=== PATIENT | female | born 1960 | race Caucasian/White ===

== ENCOUNTER → 2017-06-10 | Outpatient (CLI) | payer MEDICARE, BC, OTHER ==
--- NOTE | 2017-06-10 16:16 | REPMRS ---
Patient History The patient states she had a clinical breast exam in 05/2017. Patient is postmenopausal. Family history of breast cancer in paternal grandmother at age 50 or over. Digital Woman Screen Mammo: June 10, 2017 - Exam #: [id number] Bilateral CC and MLO view(s) were taken. Technologist: Mary Smiley Technologist Prior study comparison: May 13, 2016, digital woman screen mammo performed at [facility]. April 03, 2015, digital woman screen mammo performed at [facility]. February 27, 2014, digital woman screen mammo performed at [facility]. FINDINGS: There are scattered fibroglandular densities. An Xilici-W-Ylvi reservoir overlies the right superomedial breast. There has been no change in the appearance of the mammogram from the prior studies. There is a mild amount of scattered fibroglandular density which is fairly symmetric. There is no interval development of dominant mass, architectural distortion, or clustered microcalcification suggestive of malignancy. ASSESSMENT: BI-RADS/ACR category 2 mammogram. Benign finding(s). Recommendation Routine screening mammogram in 1 year (for women over age 40). This mammogram was interpreted with the aid of an FDA-approved computer-aided dectection system. Electronically Signed By: Savage Shaffer MD 06/10/17 2710
== END ==
LOC: M WHC 14:59
PROVIDERS: ATTEND Nurse Practitioner Family
DX: Z01.419 Encounter for gynecological examination (general) (routine) without abnormal findings (principal); Z12.31 Encounter for screening mammogram for malignant neoplasm of breast; Z78.0 Asymptomatic menopausal state; Z80.3 Family history of malignant neoplasm of breast; N81.11 Cystocele, midline
CPT/HCPCS: G0101; G0202

== ENCOUNTER → 2018-08-11 | Outpatient (CLI) | payer MEDICARE, BC, OTHER | LOC: M WHC 12:57 | DX: Z51.81 Encounter for therapeutic drug level monitoring (principal); Z79.899 Other long term (current) drug therapy; M81.0 Age-related osteoporosis without current pathological fracture; Z12.31 Encounter for screening mammogram for malignant neoplasm of breast; Z12.12 Encounter for screening for malignant neoplasm of rectum | CPT/HCPCS: 77067; 77080 ==

== ENCOUNTER → 2018-08-11 | Outpatient (CLI) | payer OTHER | LOC: M WHC 13:01 | DX: Z12.31 Encounter for screening mammogram for malignant neoplasm of breast (principal) | CPT/HCPCS: 77067 ==

== ENCOUNTER → 2019-08-19 | Outpatient (CLI) | payer MEDICARE, BC ==
--- NOTE | 2019-08-19 15:36 | REP ---
BILATERAL SCREENING DIGITAL MAMMOGRAM WITH 3D TOMOSYNTHESIS: There are no palpable abnormalities or other breast complaints. The the patient states she had a clinical breast examination August,. The the patient states she performs self-breast examinations 12 times per year. The Tyrer-Cuzick Score is: 8.0% . Comparison is 04/03/2015. There are scattered areas of fibroglandular density. There is no dominant mass, micro calcific cluster or architectural distortion that would indicate malignancy. There are no additional findings on 3D tomosynthesiss. There is no change from the prior study. Impression: BIRADS/ACR category 1 mammogram. Negative. Recommendation: Routine annual screening mammography. This mammogram was interpreted with the aid of a FDA approved computer-aided detection system. A. Negative mammogram reports should not delay biopsy if a dominant or clinically suspicious mass is present. B. Not all breast cancers are identified by mammography or tomosynthesis. C. Adenosis and dense breasts may obscure an underlying neoplasm. Patient letter M1. Electronically Signed by Russel Gunderson MD 08/19/2019 03:27 P
== END ==
LOC: M WHC 13:24
PROVIDERS: ATTEND Nurse Practitioner Family
DX: Z01.419 Encounter for gynecological examination (general) (routine) without abnormal findings (principal); Z12.31 Encounter for screening mammogram for malignant neoplasm of breast
CPT/HCPCS: 77063; 77067; G0101

== ENCOUNTER → 2020-11-22 | Outpatient (CLI) | payer MEDICARE, OTHER ==
--- NOTE | 2020-11-22 12:32 | REPMRS ---
Patient History The patient states she had a clinical breast exam in November 2020. Family history of breast cancer at age 50 or over in paternal grandmother. No Hormone Replacement Therapy Digital Woman Screen Mammo: November 22, 2020 - Exam #: [id number] Bilateral CC and MLO view(s) were taken. Technologist: Amber Boswell Technologist Prior study comparison: August 19, 2019, bilateral digital woman screen mammo performed at [facility]. August 11, 2018, bilateral digital woman screen mammo performed at [facility]. June 10, 2017, digital woman screen mammo performed at [facility]. FINDINGS: There are scattered fibroglandular densities. The Volpara volumetric breast density category is:B. There are fine calcifications on the scan of the lateral aspect of the right breast consistent with deodorant or powder residue. These are clearly seen to be on the skin on tomography. An Mjgpdz-N-Kkrh catheter overlies the right axilla. There has been no change in the appearance of the mammogram from the prior studies. There is a mild amount of scattered fibroglandular density which is fairly symmetric. There is no interval development of dominant mass, architectural distortion, or grouped microcalcification suggestive of malignancy. 3-D tomosynthesis shows no additional findings. Assessment: BI-RADS/ACR category 2 mammogram. Benign Findings. Recommendation Routine screening mammogram of both breasts in 1 year (for women over age 40). This patient's [facility] Lifetime Breast Cancer Risk is estimated at 7.7 %. This mammogram was interpreted with the aid of an FDA-approved computer-aided dectection system. Electronically Signed By: Savage Shaffer MD 11/22/20 [id number]
== END ==
LOC: M WHC 11:06
PROVIDERS: ATTEND Nurse Practitioner Family
DX: Z12.31 Encounter for screening mammogram for malignant neoplasm of breast (principal)
CPT/HCPCS: 77063; 77067; G0101

== ENCOUNTER 2023-09-27 08:38 | Observation (INO) | payer OTHER, BC ==
[~2023-09-27] VITALS: Ht 152.4 cm; Wt 81.4 kg
[2023-09-27] MEDS ORDERED: LEVO100T5 PO (08:55)
[2023-09-27] MEDS ORDERED: POTA10CA60 PO ×2 (08:55→11:43)
[2023-09-27] MEDS ORDERED: NS 1,000 ML IV SCH (09:40)
[2023-09-27 09:50] LABS: HEMOGLOBIN 12.8 g/dl (12.0-15.5); MEAN CORPUSCULAR HEMOGLOBIN 33.2 pg (27.0-33.0); MEAN CORPUSCULAR HGB CONC 33.7 g/dl (32.0-36.5); MEAN CORPUSCULAR VOLUME 98.7 fl (80.0-96.0); PLATELET COUNT, AUTOMATED 241 10^3/uL (150-450); RED BLOOD COUNT 3.85 10^6/uL (4.00-5.40); WHITE BLOOD COUNT 7.7 10^3/uL (4.0-10.0)
[2023-09-27 10:01] LABS: BLOOD UREA NITROGEN 6 MG/DL (9-23); CALCIUM LEVEL 7.8 MG/DL (8.3-10.6); CARBON DIOXIDE LEVEL 23 MMOL/L (20-31); CHLORIDE LEVEL 109 MMOL/L (98-107); CREATININE FOR GFR 0.33 MG/DL (0.55-1.30); GLOMERULAR FILTRATION RATE > 60.0 (>45); GLUCOSE, FASTING 94 MG/DL (74-106); POTASSIUM SERUM 3.6 MMOL/L (3.5-5.1); SODIUM LEVEL 145 MMOL/L (136-145)
[2023-09-27] MEDS ORDERED: MOM 30ML SUSPENSION UDC PO PRN (10:55)
[2023-09-27] MEDS ORDERED: MAALOX 30 ML SUSP *UDC PO PRN (10:55)
[2023-09-27] MEDS ORDERED: ACETAMINOPHEN TAB 650MG DOSE (2X325MG) PO PRN (10:55)
[2023-09-27] MEDS ORDERED: LORazepam 2 MG TAB PO PRN (10:55)
[2023-09-27 11:06] LABS: ETHYL ALCOHOL (ETHANOL) 0.058 % (0.000-0.010)
[2023-09-27] MEDS ORDERED: MORPHINE 2 MG/ML 1ML VIAL IV PRN (11:15)
[2023-09-27] MEDS ORDERED: MED REC IN PROGRESS XX SCH (11:20)
[2023-09-27] MEDS: hydrALAZINE 20MG/ML 1ML VIAL IV SCH ×3 (11:30→23:32)
[2023-09-27 11:36] LABS: PROCALCITONIN <0.04 ng/ml
[2023-09-27] MEDS ORDERED: NYST1POW9 (11:43)
[2023-09-27 11:49] LABS: HEMOGLOBIN A1c 4.8 % (4.0-6.0)
[2023-09-27] MEDS ORDERED: HOME MED LIST COMPLETE! XX SCH (11:50)
[2023-09-27] MEDS ORDERED: HYDROMORPHONE HCL 0.5 MG/ 0.5 ML SYRINGE IV PRN ×4 (13:50→15:10)
[2023-09-27] MEDS ORDERED: hydrALAZINE 20MG/ML 1ML VIAL IV STA (15:01)
[2023-09-27] MEDS ORDERED: ceFAZolin 2 GM/D5W 50 ML IV BAG As Ordered ONE (18:44)
[2023-09-27] MEDS ORDERED: oxyCODONE 5MG TAB PO PRN (20:10)
[2023-09-27] MEDS ORDERED: HYDROmorphone HCL 2MG/ML 1ML VIAL As Ordered ONE (20:19)
[2023-09-27] MEDS: HYDROMORPHONE HCL 0.5 MG/ 0.5 ML SYRINGE IV PRN ×4 (20:25→20:40)
[2023-09-27] MEDS: fentaNYL 100 MCG/2 ML INJECTION IV PRN ×4 (20:44→20:59)
[2023-09-27 21:40] VITALS: BP 170/92; TEMP 98.3; O2SAT 95
[2023-09-27 22:00] VITALS: O2SAT 96
[2023-09-27 22:10] VITALS: BP 155/70; TEMP 98.5; O2SAT 94
[2023-09-27 22:33] VITALS: BP 145/89; TEMP 98.6; O2SAT 97
[2023-09-27] MEDS: THIAMINE 100 MG TAB PO SCH (23:18)
[2023-09-27] MEDS: DOCUSATE SODIUM 100MG CAPSULE PO SCH (23:18)
[2023-09-27 23:35] VITALS: BP 150/92; TEMP 98.2; O2SAT 99
[2023-09-28] VITALS (19 sets, daily range): BP systolic 118–146; BP diastolic 57–93; TEMP 97.2–98.6; O2SAT 94–99
[2023-09-28] MEDS: hydrALAZINE 20MG/ML 1ML VIAL IV SCH ×3 (05:44→18:00)
[2023-09-28 06:50] LABS: BASO % 0.2 % (0.0-1.0); HEMATOCRIT 35.5 % (36.0-47.0); HEMOGLOBIN 11.8 g/dl (12.0-15.5); LYMPH # 0.6 10^3/uL (1.5-5.0); LYMPH % 8.8 % (24.0-44.0); MEAN CORPUSCULAR HEMOGLOBIN 33.1 pg (27.0-33.0); MEAN CORPUSCULAR HGB CONC 33.2 g/dl (32.0-36.5); MEAN CORPUSCULAR VOLUME 99.4 fl (80.0-96.0); MONO # 0.5 10^3/uL (0.0-0.8); MONO % 8.3 % (2.0-8.0); NEUTROPHILS # 5.3 10^3/uL (1.5-8.5); NEUTROPHILS % 82.2 % (36.0-66.0); PLATELET COUNT, AUTOMATED 207 10^3/uL (150-450); RED BLOOD COUNT 3.57 10^6/uL (4.00-5.40); WHITE BLOOD COUNT 6.4 10^3/uL (4.0-10.0)
[2023-09-28 07:23] LABS: BLOOD UREA NITROGEN 10 MG/DL (9-23); CALCIUM LEVEL 7.9 MG/DL (8.3-10.6); CARBON DIOXIDE LEVEL 27 MMOL/L (20-31); CHLORIDE LEVEL 103 MMOL/L (98-107); CREATININE FOR GFR 0.39 MG/DL (0.55-1.30); GLOMERULAR FILTRATION RATE > 60.0 (>45); GLUCOSE, FASTING 171 MG/DL (74-106); MAGNESIUM LEVEL 1.3 MG/DL (1.8-2.4); SODIUM LEVEL 137 MMOL/L (136-145)
[2023-09-28] MEDS: DOCUSATE SODIUM 100MG CAPSULE PO SCH ×2 (09:00→21:08)
[2023-09-28] MEDS: MULTIVITAMINS/MINERALS THERAP 1 TAB PO SCH (09:07)
[2023-09-28] MEDS: FOLIC ACID 1MG TAB PO SCH (09:07)
[2023-09-28] MEDS: THIAMINE 100 MG TAB PO SCH ×2 (09:08→21:08)
[2023-09-28] MEDS: MAG SULF 1GM/100ML (MAG RUN) 1 GM in IV 1 EA IV SCH ×4 (09:13→12:33)
[2023-09-28] MEDS ORDERED: PERCOCET 5MG/325MG TAB PO PRN (09:45)
[2023-09-28] MEDS ORDERED: NYSTATIN 100,000 UNITS/GM TOPICAL PWD 15GM TOP SCH (09:45)
[2023-09-28] MEDS: LEVOTHYROXINE 100MCG TABLET (0.1MG) PO SCH (12:34)
[2023-09-28] MEDS: PERCOCET 5MG/325MG TAB PO PRN (12:34)
[2023-09-28] MEDS: **hydrALAZINE HCL** 25 MG TAB PO SCH (23:51)
[2023-09-29] MEDS: PERCOCET 5MG/325MG TAB PO PRN ×2 (01:18→09:52)
[2023-09-29 06:00] VITALS: BP 133/71; TEMP 97.1; O2SAT 16
[2023-09-29] MEDS: **hydrALAZINE HCL** 25 MG TAB PO SCH (06:00)
[2023-09-29 06:16] LABS: BASO % 0.3 % (0.0-1.0); EOS # 0.1 10^3/uL (0.0-0.5); EOS % 0.9 % (0.0-3.0); HEMATOCRIT 32.6 % (36.0-47.0); HEMOGLOBIN 10.8 g/dl (12.0-15.5); LYMPH # 1.7 10^3/uL (1.5-5.0); MEAN CORPUSCULAR HEMOGLOBIN 33.5 pg (27.0-33.0); MEAN CORPUSCULAR HGB CONC 33.1 g/dl (32.0-36.5); MEAN CORPUSCULAR VOLUME 101.2 fl (80.0-96.0); MONO # 0.8 10^3/uL (0.0-0.8); MONO % 10.6 % (2.0-8.0); NEUTROPHILS # 4.8 10^3/uL (1.5-8.5); NEUTROPHILS % 64.8 % (36.0-66.0); PLATELET COUNT, AUTOMATED 198 10^3/uL (150-450); RED BLOOD COUNT 3.22 10^6/uL (4.00-5.40); WHITE BLOOD COUNT 7.5 10^3/uL (4.0-10.0)
[2023-09-29 06:38] LABS: BLOOD UREA NITROGEN 11 MG/DL (9-23); CALCIUM LEVEL 8.3 MG/DL (8.3-10.6); CARBON DIOXIDE LEVEL 27 MMOL/L (20-31); CHLORIDE LEVEL 107 MMOL/L (98-107); CREATININE FOR GFR 0.39 MG/DL (0.55-1.30); GLOMERULAR FILTRATION RATE > 60.0 (>45); GLUCOSE, FASTING 102 MG/DL (74-106); MAGNESIUM LEVEL 1.9 MG/DL (1.8-2.4); POTASSIUM SERUM 3.6 MMOL/L (3.5-5.1); SODIUM LEVEL 141 MMOL/L (136-145)
[2023-09-29] MEDS ORDERED: amLODIPine 5 MG TAB PO SCH (09:00)
[2023-09-29] MEDS ORDERED: MIRALAX *UNIT DOSE* 17GM PACKET PO SCH (09:00)
[2023-09-29] MEDS: FOLIC ACID 1MG TAB PO SCH (09:51)
[2023-09-29] MEDS: THIAMINE 100 MG TAB PO SCH (09:51)
[2023-09-29] MEDS: DOCUSATE SODIUM 100MG CAPSULE PO SCH (09:51)
[2023-09-29] MEDS: MULTIVITAMINS/MINERALS THERAP 1 TAB PO SCH (09:51)
[2023-09-29] MEDS: LEVOTHYROXINE 100MCG TABLET (0.1MG) PO SCH (09:52)
[2023-09-29 12:27] VITALS: BP 138/75
[2023-09-29 12:29] VITALS: O2SAT 96
[2023-09-29] MEDS ORDERED: THIA100TA PO (12:51)
[2023-09-29] MEDS ORDERED: FOLI1TAB11 PO (12:51)
[2023-09-29] MEDS ORDERED: AMLO1TAB24 PO (12:51)
[2023-09-29] MEDS ORDERED: COLA100C5 PO (12:51)
[2023-09-29 14:00] VITALS: BP 138/75
[2023-09-29] MEDS ORDERED: HEPARIN SOD (PORCINE) 5000UNITS/ML 1ML VIAL/SYRINGE SC SCH (14:00)
[2023-09-29 14:26] VITALS: BP 124/66; TEMP 97.2; O2SAT 94
== END 2023-09-29 15:55 ==
LOC: M ED 08:38 → M ED INP 08:39 → ENRESERV 15:18 → M PCU 21:31 → M MS4PR 09-28 20:04
PROVIDERS: ADMIT Internal Medicine; ATTEND Internal Medicine
DX: S82.851A Displaced trimalleolar fracture of right lower leg, initial encounter for closed fracture (principal); X50.1XXA Overexertion from prolonged static or awkward postures, initial encounter; Y92.091 Bathroom in other non-institutional residence as the place of occurrence of the external cause; Y93.01 Activity, walking, marching and hiking; Y99.9 Unspecified external cause status; I16.0 Hypertensive urgency; F10.90 Alcohol use, unspecified, uncomplicated; J45.909 Unspecified asthma, uncomplicated; J44.81 Bronchiolitis obliterans and bronchiolitis obliterans syndrome; J44.9 Chronic obstructive pulmonary disease, unspecified; E78.5 Hyperlipidemia, unspecified; G47.33 Obstructive sleep apnea (adult) (pediatric); E03.9 Hypothyroidism, unspecified; M19.90 Unspecified osteoarthritis, unspecified site; D89.89 Other specified disorders involving the immune mechanism, not elsewhere classified; M79.7 Fibromyalgia; K21.9 Gastro-esophageal reflux disease without esophagitis; F41.0 Panic disorder [episodic paroxysmal anxiety]; R56.9 Unspecified convulsions; Z88.1 Allergy status to other antibiotic agents; Z88.8 Allergy status to other drugs, medicaments and biological substances; Z79.899 Other long term (current) drug therapy; Z79.890 Hormone replacement therapy; Z86.73 Personal history of transient ischemic attack (TIA), and cerebral infarction without residual deficits

== ENCOUNTER 2023-09-29 12:24 | Inpatient (IN) | payer BC, MEDICARE, OTHER ==
[~2023-09-29] VITALS: Ht 152.4 cm; Wt 89.0 kg
[~2023-09-29 12:24] MED LIST: LEVO100T5 PO; NYST1POW9; POTA10CA60 PO
[2023-09-29] MEDS ORDERED: FOLI1TAB11 PO (12:51)
[2023-09-29] MEDS ORDERED: AMLO1TAB24 PO (12:51)
[2023-09-29] MEDS ORDERED: THIA100TA PO (12:51)
[2023-09-29] MEDS ORDERED: COLA100C5 PO (12:51)
[2023-09-29 16:00] VITALS: BP 144/80; TEMP 97.8; O2SAT 100
[2023-09-29] MEDS ORDERED: diphenhydrAMINE CREAM 30GM TOP PRN (16:10)
[2023-09-29] MEDS ORDERED: ONDANSETRON 4MG TAB PO PRN (16:10)
[2023-09-29] MEDS: PERCOCET 5MG/325MG TAB PO PRN (17:31)
[2023-09-29 20:00] VITALS: BP 132/70; TEMP 97.1; O2SAT 96
[2023-09-29] MEDS: THIAMINE 100 MG TAB PO SCH (20:23)
[2023-09-29] MEDS: DOCUSATE SODIUM 100MG CAPSULE PO SCH (20:23)
[2023-09-29] MEDS: traZODone 50 MG TAB PO PRN (20:24)
[2023-09-29] MEDS: NYSTATIN 100,000 UNITS/GM TOPICAL PWD 15GM TOP SCH (21:00)
[2023-09-29] MEDS: HEPARIN SOD (PORCINE) 5000UNITS/ML 1ML VIAL/SYRINGE SQ SCH (22:00)
[2023-09-30 05:29] LABS: HEMATOCRIT 30.6 % (36.0-47.0); HEMOGLOBIN 10.2 g/dl (12.0-15.5); MEAN CORPUSCULAR HEMOGLOBIN 33.8 pg (27.0-33.0); MEAN CORPUSCULAR HGB CONC 33.3 g/dl (32.0-36.5); MEAN CORPUSCULAR VOLUME 101.3 fl (80.0-96.0); PLATELET COUNT, AUTOMATED 189 10^3/uL (150-450); RED BLOOD COUNT 3.02 10^6/uL (4.00-5.40); WHITE BLOOD COUNT 6.1 10^3/uL (4.0-10.0)
[2023-09-30] MEDS: LEVOTHYROXINE 100MCG TABLET (0.1MG) PO SCH (05:41)
[2023-09-30] MEDS: HEPARIN SOD (PORCINE) 5000UNITS/ML 1ML VIAL/SYRINGE SQ SCH ×3 (05:41→20:48)
[2023-09-30 05:56] LABS: BLOOD UREA NITROGEN 9 MG/DL (9-23); CALCIUM LEVEL 7.6 MG/DL (8.3-10.6); CARBON DIOXIDE LEVEL 27 MMOL/L (20-31); CHLORIDE LEVEL 110 MMOL/L (98-107); GLOMERULAR FILTRATION RATE > 60.0 (>45); GLUCOSE, FASTING 95 MG/DL (74-106); POTASSIUM SERUM 3.6 MMOL/L (3.5-5.1); SODIUM LEVEL 143 MMOL/L (136-145)
[2023-09-30 06:00] VITALS: BP 130/68; TEMP 98.1; O2SAT 98
[2023-09-30] MEDS: NYSTATIN 100,000 UNITS/GM TOPICAL PWD 15GM TOP SCH ×2 (07:44→20:54)
[2023-09-30] MEDS: FOLIC ACID 1MG TAB PO SCH (07:44)
[2023-09-30] MEDS: DOCUSATE SODIUM 100MG CAPSULE PO SCH ×2 (07:44→20:47)
[2023-09-30] MEDS: THIAMINE 100 MG TAB PO SCH ×2 (07:44→20:47)
[2023-09-30] MEDS: amLODIPine 5 MG TAB PO SCH (07:44)
[2023-09-30] MEDS: PERCOCET 5MG/325MG TAB PO PRN ×2 (07:46→16:38)
[2023-09-30 11:38] LABS: VITAMIN B12 LEVEL 233 PG/ML (211-911)
[2023-09-30 11:42] LABS: FOLATE 8.2 NG/ML (>5.4)
[2023-09-30 14:00] VITALS: BP 135/63; TEMP 97.8; O2SAT 98
[2023-09-30 20:00] VITALS: BP 127/76; TEMP 97.6; O2SAT 99
[2023-09-30] MEDS: traZODone 50 MG TAB PO PRN (20:47)
[2023-10-01] MEDS: LEVOTHYROXINE 100MCG TABLET (0.1MG) PO SCH (05:31)
[2023-10-01] MEDS: HEPARIN SOD (PORCINE) 5000UNITS/ML 1ML VIAL/SYRINGE SQ SCH ×3 (05:32→20:25)
[2023-10-01 06:00] VITALS: BP 117/78; TEMP 98.7; O2SAT 99
[2023-10-01] MEDS: amLODIPine 5 MG TAB PO SCH (08:16)
[2023-10-01] MEDS: PERCOCET 5MG/325MG TAB PO PRN ×2 (08:16→20:22)
[2023-10-01] MEDS: FOLIC ACID 1MG TAB PO SCH (08:16)
[2023-10-01] MEDS: DOCUSATE SODIUM 100MG CAPSULE PO SCH ×2 (08:16→20:19)
[2023-10-01] MEDS: THIAMINE 100 MG TAB PO SCH ×2 (08:16→20:22)
[2023-10-01] MEDS: NYSTATIN 100,000 UNITS/GM TOPICAL PWD 15GM TOP SCH ×2 (08:17→20:22)
[2023-10-01 14:00] VITALS: BP 129/64; TEMP 98.2; O2SAT 98
[2023-10-01] MEDS ORDERED: BISACODYL 10MG SUPP PR PRN (14:40)
[2023-10-01] MEDS ORDERED: MIRALAX *UNIT DOSE* 17GM PACKET PO PRN (14:40)
[2023-10-01 20:01] VITALS: TEMP 98.8; O2SAT 99
[2023-10-01] MEDS: traZODone 50 MG TAB PO PRN (20:22)
[2023-10-01 20:27] VITALS: BP 172/76
[2023-10-01 22:20] VITALS: BP 140/78
[2023-10-02 05:21] VITALS: BP 143/79; TEMP 98.2; O2SAT 95
[2023-10-02] MEDS: LEVOTHYROXINE 100MCG TABLET (0.1MG) PO SCH (05:25)
[2023-10-02] MEDS: HEPARIN SOD (PORCINE) 5000UNITS/ML 1ML VIAL/SYRINGE SQ SCH ×3 (05:25→21:06)
[2023-10-02] MEDS: DOCUSATE SODIUM 100MG CAPSULE PO SCH ×2 (08:18→21:00)
[2023-10-02] MEDS: FOLIC ACID 1MG TAB PO SCH (08:25)
[2023-10-02] MEDS: PERCOCET 5MG/325MG TAB PO PRN ×2 (08:26→21:07)
[2023-10-02] MEDS: THIAMINE 100 MG TAB PO SCH ×2 (08:26→21:06)
[2023-10-02] MEDS: amLODIPine 5 MG TAB PO SCH (08:29)
[2023-10-02] MEDS: NYSTATIN 100,000 UNITS/GM TOPICAL PWD 15GM TOP SCH ×2 (08:31→21:00)
[2023-10-02 14:00] VITALS: BP 141/72; TEMP 97.8; O2SAT 93
[2023-10-02 20:00] VITALS: BP 135/85; TEMP 99; O2SAT 98
[2023-10-02] MEDS: traZODone 50 MG TAB PO PRN (21:07)
[2023-10-03] MEDS: LEVOTHYROXINE 100MCG TABLET (0.1MG) PO SCH (05:46)
[2023-10-03] MEDS: HEPARIN SOD (PORCINE) 5000UNITS/ML 1ML VIAL/SYRINGE SQ SCH ×3 (05:47→21:09)
[2023-10-03 06:00] VITALS: BP 111/59; TEMP 97.5; O2SAT 97
[2023-10-03] MEDS: DOCUSATE SODIUM 100MG CAPSULE PO SCH ×2 (09:00→21:00)
[2023-10-03] MEDS: amLODIPine 5 MG TAB PO SCH (09:06)
[2023-10-03] MEDS: FOLIC ACID 1MG TAB PO SCH (09:06)
[2023-10-03] MEDS: THIAMINE 100 MG TAB PO SCH ×2 (09:06→21:09)
[2023-10-03] MEDS: NYSTATIN 100,000 UNITS/GM TOPICAL PWD 15GM TOP SCH ×2 (09:07→21:00)
[2023-10-03] MEDS: PERCOCET 5MG/325MG TAB PO PRN ×2 (09:07→19:14)
[2023-10-03 14:00] VITALS: TEMP 98.3; O2SAT 97
[2023-10-03 20:00] VITALS: BP 159/76; TEMP 98.7; O2SAT 100
[2023-10-03] MEDS: traZODone 50 MG TAB PO PRN (21:09)
[2023-10-04] MEDS: HEPARIN SOD (PORCINE) 5000UNITS/ML 1ML VIAL/SYRINGE SQ SCH ×3 (05:30→22:08)
[2023-10-04] MEDS: LEVOTHYROXINE 100MCG TABLET (0.1MG) PO SCH (05:30)
[2023-10-04 06:00] VITALS: BP 139/72; TEMP 97.7; O2SAT 94
[2023-10-04] MEDS: DOCUSATE SODIUM 100MG CAPSULE PO SCH ×2 (09:00→19:37)
[2023-10-04] MEDS: FOLIC ACID 1MG TAB PO SCH (09:07)
[2023-10-04] MEDS: NYSTATIN 100,000 UNITS/GM TOPICAL PWD 15GM TOP SCH ×2 (09:08→21:00)
[2023-10-04] MEDS: THIAMINE 100 MG TAB PO SCH ×2 (09:08→21:16)
[2023-10-04] MEDS: amLODIPine 5 MG TAB PO SCH (09:08)
[2023-10-04] MEDS: PERCOCET 5MG/325MG TAB PO PRN (13:34)
[2023-10-04 14:00] VITALS: BP 130/70; TEMP 98.1; O2SAT 96
[2023-10-04 20:02] VITALS: BP 129/84; TEMP 98; O2SAT 97
[2023-10-04] MEDS: traZODone 50 MG TAB PO PRN (21:16)
[2023-10-05] MEDS: LEVOTHYROXINE 100MCG TABLET (0.1MG) PO SCH (05:33)
[2023-10-05] MEDS: HEPARIN SOD (PORCINE) 5000UNITS/ML 1ML VIAL/SYRINGE SQ SCH ×3 (05:33→20:47)
[2023-10-05 06:00] VITALS: BP_SYST 118; BP_SYST 122; BP_DIAS 64; BP_DIAS 68; TEMP 98.3; O2SAT 98
[2023-10-05] MEDS: FOLIC ACID 1MG TAB PO SCH (07:39)
[2023-10-05] MEDS: THIAMINE 100 MG TAB PO SCH ×2 (07:39→20:46)
[2023-10-05] MEDS: amLODIPine 5 MG TAB PO SCH (07:39)
[2023-10-05] MEDS: DOCUSATE SODIUM 100MG CAPSULE PO SCH ×2 (07:40→19:56)
[2023-10-05] MEDS: NYSTATIN 100,000 UNITS/GM TOPICAL PWD 15GM TOP SCH (07:40)
[2023-10-05] MEDS: PERCOCET 5MG/325MG TAB PO PRN (07:40)
[2023-10-05 14:00] VITALS: BP 118/70; TEMP 98.2; O2SAT 92
[2023-10-05 20:00] VITALS: BP 135/85; TEMP 98.5; O2SAT 97
[2023-10-05] MEDS: traZODone 50 MG TAB PO PRN (20:46)
[2023-10-06] MEDS: PERCOCET 5MG/325MG TAB PO PRN ×3 (00:02→20:09)
[2023-10-06 06:00] VITALS: BP 111/58; TEMP 97.7; O2SAT 96
[2023-10-06] MEDS: HEPARIN SOD (PORCINE) 5000UNITS/ML 1ML VIAL/SYRINGE SQ SCH (06:21)
[2023-10-06] MEDS: LEVOTHYROXINE 100MCG TABLET (0.1MG) PO SCH (06:21)
[2023-10-06 06:44] LABS: HEMATOCRIT 36.9 % (36.0-47.0); MEAN CORPUSCULAR HEMOGLOBIN 33.1 pg (27.0-33.0); MEAN CORPUSCULAR HGB CONC 32.5 g/dl (32.0-36.5); MEAN CORPUSCULAR VOLUME 101.7 fl (80.0-96.0); PLATELET COUNT, AUTOMATED 261 10^3/uL (150-450); RED BLOOD COUNT 3.63 10^6/uL (4.00-5.40); WHITE BLOOD COUNT 5.9 10^3/uL (4.0-10.0)
[2023-10-06] MEDS: DOCUSATE SODIUM 100MG CAPSULE PO SCH ×2 (07:03→20:08)
[2023-10-06 07:15] LABS: BLOOD UREA NITROGEN 8 MG/DL (9-23); CALCIUM LEVEL 9.1 MG/DL (8.3-10.6); CARBON DIOXIDE LEVEL 30 MMOL/L (20-31); CHLORIDE LEVEL 105 MMOL/L (98-107); CREATININE FOR GFR 0.47 MG/DL (0.55-1.30); GLOMERULAR FILTRATION RATE > 60.0 (>45); GLUCOSE, FASTING 102 MG/DL (74-106); POTASSIUM SERUM 4.5 MMOL/L (3.5-5.1); SODIUM LEVEL 140 MMOL/L (136-145)
[2023-10-06] MEDS: FOLIC ACID 1MG TAB PO SCH (07:17)
[2023-10-06] MEDS: amLODIPine 5 MG TAB PO SCH (07:17)
[2023-10-06] MEDS: THIAMINE 100 MG TAB PO SCH ×2 (07:17→20:09)
[2023-10-06 14:00] VITALS: BP 110/69; TEMP 98; O2SAT 96
[2023-10-06 20:00] VITALS: BP 139/77; TEMP 98.4; O2SAT 98
[2023-10-06] MEDS: traZODone 50 MG TAB PO PRN (20:09)
[2023-10-07] MEDS: LEVOTHYROXINE 100MCG TABLET (0.1MG) PO SCH (05:44)
[2023-10-07 06:00] VITALS: BP 138/76; TEMP 97.4; O2SAT 97
[2023-10-07] MEDS: FOLIC ACID 1MG TAB PO SCH (08:35)
[2023-10-07] MEDS: DOCUSATE SODIUM 100MG CAPSULE PO SCH (08:35)
[2023-10-07] MEDS: THIAMINE 100 MG TAB PO SCH (08:35)
[2023-10-07] MEDS: amLODIPine 5 MG TAB PO SCH (08:35)
[2023-10-07] MEDS: PERCOCET 5MG/325MG TAB PO PRN (10:36)
[2023-10-07] MEDS ORDERED: ONDANSETRON 4MG 2ML VIAL As Ordered ONE (12:34)
[2023-10-07] MEDS ORDERED: ROCURONIUM BROMIDE 50MG/5ML VIAL As Ordered ONE ×2 (12:34→16:11)
[2023-10-07] MEDS ORDERED: SUGAMMADEX SODIUM 500 MG/5 ML VIAL (BRIDION) As Ordered ONE (12:34)
[2023-10-07] MEDS ORDERED: LIDOCAINE 2% 100MG/5ML SDV (FOR ANES.) As Ordered ONE (12:34)
[2023-10-07] MEDS ORDERED: propofoL 200 MG/20 ML VIAL As Ordered ONE (12:34)
[2023-10-07] MEDS ORDERED: fentaNYL 250 MCG/5 ML INJECTION As Ordered ONE (13:49)
[2023-10-07] MEDS ORDERED: MIDAZOLAM INJ 2MG/2ML VIAL As Ordered ONE (13:49)
[2023-10-07] MEDS ORDERED: ACETAMINOPHEN 1000MG 100ML IV BAG As Ordered ONE (15:03)
[2023-10-07] MEDS ORDERED: KETOROLAC 60MG 2ML VIAL As Ordered ONE (15:03)
[2023-10-07] MEDS ORDERED: HYDROmorphone HCL 2MG/ML 1ML VIAL As Ordered ONE (16:43)
[2023-10-07] MEDS ORDERED: ePHEDrine SULFATE 25 MG/5 ML(5MG/ML) SYRINGE As Ordered ONE (16:47)
[2023-10-07] MEDS ORDERED: PHENYLephrine 500MCG 5ML (100MCG/ML) SYRINGE As Ordered ONE (16:47)
[2023-10-07] MEDS ORDERED: FOLI1TAB11 PO (22:23)
[2023-10-07] MEDS ORDERED: DOCU100C16 PO (22:23)
[2023-10-07] MEDS ORDERED: OXYC1TAB23 PO (22:23)
[2023-10-07] MEDS ORDERED: BENA2CRE3 EXT (22:23)
[2023-10-07] MEDS ORDERED: SYNT100T PO (22:23)
[2023-10-07] MEDS ORDERED: AMLO1TAB24 PO (22:23)
[2023-10-07] MEDS ORDERED: ONDA-195 PO (22:23)
[2023-10-07] MEDS ORDERED: BISA10SU20 PR (22:23)
[2023-10-07] MEDS ORDERED: THIA100T7 PO (22:23)
[2023-10-07] MEDS ORDERED: NYST1POW9 TOP (22:23)
[2023-10-07] MEDS ORDERED: MIRA1POW3 PO (22:23)
[2023-10-07] MEDS ORDERED: TRAZ-186 PO (22:23)
[2023-10-08] MEDS ORDERED: ACET1TAB55 PO (11:51)
[2023-10-08] MEDS ORDERED: CEFA2SOL IV (11:51)
[2023-10-08 13:00] VITALS: BP 140/78; TEMP 99.6; O2SAT 100
[2023-10-08 13:10] VITALS: BP 140/77; TEMP 99.6; O2SAT 100
[2023-10-08 14:00] VITALS: TEMP 99.6; O2SAT 100
[2023-10-08] MEDS ORDERED: ceFAZolin SOD 2 GM in IV 1 EA IV ONE ×3 (14:00→20:00)
[2023-10-08] MEDS ORDERED: oxyCODONE 5MG TAB PO PRN (17:55)
[2023-10-08] MEDS ORDERED: ACETAMINOPHEN TAB 650MG DOSE (2X325MG) PO PRN (18:10)
[2023-10-08] MEDS ORDERED: MOM 30ML SUSPENSION UDC PO PRN (18:10)
[2023-10-08] MEDS ORDERED: MAALOX 30 ML SUSP *UDC PO PRN (18:10)
[2023-10-08] MEDS ORDERED: MIRALAX *UNIT DOSE* 17GM PACKET PO PRN (18:10)
[2023-10-08] MEDS ORDERED: diphenhydrAMINE 25MG CAP PO PRN (18:10)
[2023-10-08] MEDS ORDERED: SIMETHICONE 80MG CHEW TAB PO PRN (18:10)
[2023-10-08] MEDS ORDERED: ONDANSETRON 4MG TAB PO PRN (18:10)
[2023-10-08] MEDS: oxyCODONE 5MG TAB PO PRN (19:12)
[2023-10-08 19:40] VITALS: BP 133/73; TEMP 99.8; O2SAT 99
[2023-10-08] MEDS: DOCUSATE SODIUM 100MG CAPSULE PO SCH (21:00)
[2023-10-08] MEDS: traZODone 50 MG TAB PO SCH (21:30)
[2023-10-09] MEDS: oxyCODONE 5MG TAB PO PRN ×3 (00:23→18:34)
[2023-10-09 05:23] VITALS: BP 108/59; TEMP 99.4; O2SAT 92
[2023-10-09] MEDS: LEVOTHYROXINE 100MCG TABLET (0.1MG) PO SCH (05:29)
[2023-10-09 06:48] LABS: HEMATOCRIT 31.9 % (36.0-47.0); HEMOGLOBIN 10.4 g/dl (12.0-15.5); MEAN CORPUSCULAR HGB CONC 32.6 g/dl (32.0-36.5); MEAN CORPUSCULAR VOLUME 104.2 fl (80.0-96.0); PLATELET COUNT, AUTOMATED 269 10^3/uL (150-450); RED BLOOD COUNT 3.06 10^6/uL (4.00-5.40); WHITE BLOOD COUNT 7.4 10^3/uL (4.0-10.0)
[2023-10-09 07:22] LABS: BLOOD UREA NITROGEN 7 MG/DL (9-23); CALCIUM LEVEL 7.9 MG/DL (8.3-10.6); CARBON DIOXIDE LEVEL 27 MMOL/L (20-31); CHLORIDE LEVEL 105 MMOL/L (98-107); CREATININE FOR GFR 0.51 MG/DL (0.55-1.30); GLOMERULAR FILTRATION RATE > 60.0 (>45); GLUCOSE, FASTING 97 MG/DL (74-106); SODIUM LEVEL 139 MMOL/L (136-145)
[2023-10-09] MEDS: DOCUSATE SODIUM 100MG CAPSULE PO SCH ×2 (09:47→20:30)
[2023-10-09] MEDS: THIAMINE 100 MG TAB PO SCH (09:47)
[2023-10-09] MEDS: amLODIPine 5 MG TAB PO SCH (09:48)
[2023-10-09] MEDS: FOLIC ACID 1MG TAB PO SCH (09:48)
[2023-10-09] MEDS: ENOXAPARIN 40MG/0.4ML SYRINGE (J1650 PER 10MG) SC SCH (09:48)
[2023-10-09 14:00] VITALS: BP 109/62; TEMP 98.4; O2SAT 98
[2023-10-09] MEDS ORDERED: SODIUM CHLORIDE 0.9% INJ 10 ML SYR IV PRN (15:15)
[2023-10-09 20:05] VITALS: BP 120/61; TEMP 97.3; O2SAT 99
[2023-10-09] MEDS: traZODone 50 MG TAB PO SCH (20:54)
[2023-10-10 05:34] VITALS: BP 120/70; TEMP 96.3; O2SAT 92
[2023-10-10] MEDS: LEVOTHYROXINE 100MCG TABLET (0.1MG) PO SCH (05:40)
[2023-10-10] MEDS: oxyCODONE 5MG TAB PO PRN ×2 (06:00→17:41)
[2023-10-10] MEDS: SODIUM CHLORIDE 0.9% INJ 10 ML SYR IV SCH (09:00)
[2023-10-10] MEDS: THIAMINE 100 MG TAB PO SCH (09:58)
[2023-10-10] MEDS: DOCUSATE SODIUM 100MG CAPSULE PO SCH ×2 (09:58→20:16)
[2023-10-10] MEDS: FOLIC ACID 1MG TAB PO SCH (09:58)
[2023-10-10] MEDS: amLODIPine 5 MG TAB PO SCH (09:58)
[2023-10-10] MEDS: ENOXAPARIN 40MG/0.4ML SYRINGE (J1650 PER 10MG) SC SCH (09:59)
[2023-10-10 14:00] VITALS: BP 136/60; TEMP 97.2; O2SAT 98
[2023-10-10 19:50] VITALS: BP 112/66; TEMP 98; O2SAT 92
[2023-10-10] MEDS: traZODone 50 MG TAB PO SCH (20:16)
[2023-10-11] MEDS: oxyCODONE 5MG TAB PO PRN ×2 (03:29→16:03)
[2023-10-11] MEDS: LEVOTHYROXINE 100MCG TABLET (0.1MG) PO SCH (05:36)
[2023-10-11 06:00] VITALS: BP_SYST 103; BP_SYST 140; BP_DIAS 66; BP_DIAS 68; TEMP 96.7; O2SAT 100
[2023-10-11 06:41] LABS: HEMATOCRIT 33.4 % (36.0-47.0); HEMOGLOBIN 10.9 g/dl (12.0-15.5); MEAN CORPUSCULAR HEMOGLOBIN 33.3 pg (27.0-33.0); MEAN CORPUSCULAR HGB CONC 32.6 g/dl (32.0-36.5); MEAN CORPUSCULAR VOLUME 102.1 fl (80.0-96.0); PLATELET COUNT, AUTOMATED 312 10^3/uL (150-450); RED BLOOD COUNT 3.27 10^6/uL (4.00-5.40); WHITE BLOOD COUNT 6.6 10^3/uL (4.0-10.0)
[2023-10-11] MEDS: FOLIC ACID 1MG TAB PO SCH (09:59)
[2023-10-11] MEDS: THIAMINE 100 MG TAB PO SCH (09:59)
[2023-10-11] MEDS: ENOXAPARIN 40MG/0.4ML SYRINGE (J1650 PER 10MG) SC SCH (09:59)
[2023-10-11] MEDS: amLODIPine 5 MG TAB PO SCH (09:59)
[2023-10-11] MEDS: DOCUSATE SODIUM 100MG CAPSULE PO SCH ×2 (10:00→20:07)
[2023-10-11] MEDS: SODIUM CHLORIDE 0.9% INJ 10 ML SYR IV SCH (10:01)
[2023-10-11 14:00] VITALS: BP 114/73; TEMP 98.3; O2SAT 100
[2023-10-11 20:00] VITALS: BP 118/67; TEMP 98.2; O2SAT 98
[2023-10-11] MEDS: traZODone 50 MG TAB PO SCH (20:07)
[2023-10-12] MEDS: oxyCODONE 5MG TAB PO PRN ×3 (01:11→20:12)
[2023-10-12] MEDS: LEVOTHYROXINE 100MCG TABLET (0.1MG) PO SCH (05:26)
[2023-10-12 06:00] VITALS: BP 117/57; TEMP 98; O2SAT 93
[2023-10-12] MEDS: THIAMINE 100 MG TAB PO SCH (08:24)
[2023-10-12] MEDS: FOLIC ACID 1MG TAB PO SCH (08:24)
[2023-10-12] MEDS: DOCUSATE SODIUM 100MG CAPSULE PO SCH ×2 (08:25→19:13)
[2023-10-12] MEDS: amLODIPine 5 MG TAB PO SCH (08:25)
[2023-10-12] MEDS: ENOXAPARIN 40MG/0.4ML SYRINGE (J1650 PER 10MG) SC SCH (08:25)
[2023-10-12 14:00] VITALS: BP 133/76; TEMP 98; O2SAT 98
[2023-10-12 20:00] VITALS: BP 108/55; TEMP 98.7; O2SAT 99
[2023-10-12] MEDS: traZODone 50 MG TAB PO SCH (20:11)
[2023-10-13] MEDS: oxyCODONE 5MG TAB PO PRN (05:46)
[2023-10-13] MEDS: LEVOTHYROXINE 100MCG TABLET (0.1MG) PO SCH (05:46)
[2023-10-13 06:00] VITALS: BP 120/59; TEMP 98; O2SAT 96
[2023-10-13 08:55] VITALS: BP 120/59
[2023-10-13] MEDS: amLODIPine 5 MG TAB PO SCH (08:55)
[2023-10-13] MEDS: ENOXAPARIN 40MG/0.4ML SYRINGE (J1650 PER 10MG) SC SCH (08:55)
[2023-10-13] MEDS: THIAMINE 100 MG TAB PO SCH (08:55)
[2023-10-13] MEDS: FOLIC ACID 1MG TAB PO SCH (08:55)
[2023-10-13] MEDS: DOCUSATE SODIUM 100MG CAPSULE PO SCH (08:56)
[2023-10-13] MEDS ORDERED: ASPI81CH33 PO (12:15)
[2023-10-13] MEDS ORDERED: OXYC10TA12 PO (12:15)
[2023-10-13] MEDS ORDERED: NARC1SPR (12:15)
== END 2023-10-13 13:00 | disposition home or self-care (01) | DRG 494 ==
LOC: M PM&R 15:50 → UNDODISIN 10-07 20:30
PROVIDERS: ADMIT Physical Medicine & Rehabilitation; ATTEND Physical Medicine & Rehabilitation
PROC: 0QSG34Z Reposition Right Tibia with Internal Fixation Device, Percutaneous Approach (ICD-10-PCS; principal; 2023-09-27)
PROC: B246ZZZ Ultrasonography of Right and Left Heart (ICD-10-PCS; 2023-09-29)
DX: S82.851A Displaced trimalleolar fracture of right lower leg, initial encounter for closed fracture (principal); X50.1XXA Overexertion from prolonged static or awkward postures, initial encounter; Y92.091 Bathroom in other non-institutional residence as the place of occurrence of the external cause; Y93.01 Activity, walking, marching and hiking; Y99.9 Unspecified external cause status; I16.0 Hypertensive urgency; F10.20 Alcohol dependence, uncomplicated; J45.909 Unspecified asthma, uncomplicated; R73.9 Hyperglycemia, unspecified; J44.81 Bronchiolitis obliterans and bronchiolitis obliterans syndrome; J44.9 Chronic obstructive pulmonary disease, unspecified; E78.5 Hyperlipidemia, unspecified; F32.A Depression, unspecified; G47.33 Obstructive sleep apnea (adult) (pediatric); K59.00 Constipation, unspecified; E03.9 Hypothyroidism, unspecified; G89.18 Other acute postprocedural pain; F43.10 Post-traumatic stress disorder, unspecified; D53.9 Nutritional anemia, unspecified; E83.42 Hypomagnesemia; L30.4 Erythema intertrigo; I10 Essential (primary) hypertension; M19.90 Unspecified osteoarthritis, unspecified site; D89.89 Other specified disorders involving the immune mechanism, not elsewhere classified; M79.7 Fibromyalgia; K21.9 Gastro-esophageal reflux disease without esophagitis; E87.6 Hypokalemia; F41.0 Panic disorder [episodic paroxysmal anxiety]; R56.9 Unspecified convulsions; Z88.1 Allergy status to other antibiotic agents; Z88.8 Allergy status to other drugs, medicaments and biological substances; Z79.899 Other long term (current) drug therapy; Z79.890 Hormone replacement therapy; Z86.73 Personal history of transient ischemic attack (TIA), and cerebral infarction without residual deficits

== ENCOUNTER 2023-10-07 15:14 | Observation (INO) | payer MEDICARE, OTHER ==
[~2023-10-07] VITALS: Ht 152.4 cm; Wt 89.0 kg
[~2023-10-07 15:14] MED LIST changes: +AMLO1TAB24 PO; +COLA100C5 PO; +FOLI1TAB11 PO; +THIA100TA PO
[2023-10-07] MEDS ORDERED: ceFAZolin 2 GM/D5W 50 ML IV BAG As Ordered ONE ×2 (15:46→19:50)
[2023-10-07] MEDS ORDERED: TRANEXAMIC ACID 100 MG/ML 10ML VIAL As Ordered ONE (19:50)
[2023-10-07] MEDS ORDERED: MOM 30ML SUSPENSION UDC PO PRN (21:55)
[2023-10-07] MEDS ORDERED: ACETAMINOPHEN TAB 650MG DOSE (2X325MG) PO PRN (21:55)
[2023-10-07] MEDS ORDERED: LR 1,000 ML IV SCH (22:15)
[2023-10-07] MEDS ORDERED: HYDROMORPHONE HCL 0.5 MG/ 0.5 ML SYRINGE IV PRN (22:15)
[2023-10-07] MEDS ORDERED: fentaNYL 100 MCG/2 ML INJECTION IV PRN (22:15)
[2023-10-07] MEDS ORDERED: ONDANSETRON 4MG 2ML VIAL IV PRN (22:15)
[2023-10-07] MEDS ORDERED: oxyCODONE 5MG TAB PO PRN (22:15)
[2023-10-07] MEDS ORDERED: METOCLOPRAMIDE INJ 10MG/2ML VIAL IV PRN (22:15)
[2023-10-07] MEDS ORDERED: FOLI1TAB11 PO (22:23)
[2023-10-07] MEDS ORDERED: THIA100T7 PO (22:23)
[2023-10-07] MEDS ORDERED: MIRA1POW3 PO (22:23)
[2023-10-07] MEDS ORDERED: TRAZ-186 PO (22:23)
[2023-10-07] MEDS ORDERED: ONDA-195 PO (22:23)
[2023-10-07] MEDS ORDERED: BISA10SU20 PR (22:23)
[2023-10-07] MEDS ORDERED: SYNT100T PO (22:23)
[2023-10-07] MEDS ORDERED: DOCU100C16 PO (22:23)
[2023-10-07] MEDS ORDERED: NYST1POW9 TOP (22:23)
[2023-10-07] MEDS ORDERED: BENA2CRE3 EXT (22:23)
[2023-10-07] MEDS ORDERED: OXYC1TAB23 PO (22:23)
[2023-10-07] MEDS ORDERED: AMLO1TAB24 PO (22:23)
[2023-10-07] MEDS ORDERED: HOME MED LIST COMPLETE! XX SCH (22:25)
[2023-10-07] MEDS ORDERED: BISACODYL 10MG SUPP PR PRN (22:40)
[2023-10-07] MEDS ORDERED: traZODone 50 MG TAB PO PRN (22:40)
[2023-10-07] MEDS ORDERED: PERCOCET 5MG/325MG TAB PO PRN (22:40)
[2023-10-07] MEDS ORDERED: IPRATROPIUM 0.5MG/ALBUTEROL 2.5MG INH SOL UD 3ML (DUONEB) NEB PRN (22:45)
[2023-10-07 23:00] VITALS: BP 135/75; TEMP 97.7; O2SAT 96
[2023-10-07 23:30] VITALS: BP 131/71; TEMP 97.1; O2SAT 98
[2023-10-07] MEDS: THIAMINE 100 MG TAB PO SCH (23:31)
[2023-10-07 23:34] LABS: HEMATOCRIT 35.5 % (36.0-47.0); HEMOGLOBIN 11.6 g/dl (12.0-15.5); MEAN CORPUSCULAR HEMOGLOBIN 33.2 pg (27.0-33.0); MEAN CORPUSCULAR HGB CONC 32.7 g/dl (32.0-36.5); MEAN CORPUSCULAR VOLUME 101.7 fl (80.0-96.0); PLATELET COUNT, AUTOMATED 245 10^3/uL (150-450); RED BLOOD COUNT 3.49 10^6/uL (4.00-5.40); WHITE BLOOD COUNT 9.6 10^3/uL (4.0-10.0)
[2023-10-08] VITALS (7 sets, daily range): BP systolic 103–132; BP diastolic 62–78; TEMP 97.7–98.6; O2SAT 94–98
[2023-10-08 00:08] LABS: ALBUMIN 2.9 G/DL (3.2-5.2); ALKALINE PHOSPHATASE 74 U/L (46-116); ALT/SGPT 11 U/L (7.0-40); AST/SGOT 15 U/L (<34); BILIRUBIN,TOTAL 0.5 MG/DL (0.3-1.2); BLOOD UREA NITROGEN 9 MG/DL (9-23); CALCIUM LEVEL 8.3 MG/DL (8.3-10.6); CARBON DIOXIDE LEVEL 27 MMOL/L (20-31); CHLORIDE LEVEL 107 MMOL/L (98-107); CREATININE FOR GFR 0.46 MG/DL (0.55-1.30); GLOMERULAR FILTRATION RATE > 60.0 (>45); GLUCOSE, FASTING 129 MG/DL (74-106); POTASSIUM SERUM 4.9 MMOL/L (3.5-5.1); SODIUM LEVEL 141 MMOL/L (136-145); TOTAL PROTEIN 5.8 G/DL (5.7-8.2)
[2023-10-08] MEDS: ceFAZolin SOD 2 GM in IV 1 EA IV SCH ×2 (04:33→11:44)
[2023-10-08] MEDS ORDERED: LEVOTHYROXINE 100MCG TABLET (0.1MG) PO SCH (06:00)
[2023-10-08] MEDS: PERCOCET 5MG/325MG TAB PO PRN ×2 (06:13→11:44)
[2023-10-08] MEDS: THIAMINE 100 MG TAB PO SCH (08:35)
[2023-10-08] MEDS ORDERED: MIRALAX *UNIT DOSE* 17GM PACKET PO SCH (09:00)
[2023-10-08] MEDS ORDERED: amLODIPine 5 MG TAB PO SCH (09:00)
[2023-10-08] MEDS ORDERED: DOCUSATE SODIUM 100MG CAPSULE PO SCH (09:00)
[2023-10-08] MEDS ORDERED: FOLIC ACID 1MG TAB PO SCH (09:00)
[2023-10-08] MEDS ORDERED: ACET1TAB55 PO (11:51)
[2023-10-08] MEDS ORDERED: CEFA2SOL IV (11:51)
[2023-10-08] MEDS ORDERED: ENOXAPARIN 40MG/0.4ML SYRINGE (J1650 PER 10MG) SC SCH (21:00)
== END 2023-10-08 12:55 ==
LOC: M ED INP 20:25 → INTOOBSV 20:25 → EDSTATUS 21:39 → M MS5PR 23:05
PROVIDERS: ADMIT Student in an Organized Health Care Education/Training Program; ATTEND Student in an Organized Health Care Education/Training Program
DX: S82.851A Displaced trimalleolar fracture of right lower leg, initial encounter for closed fracture (principal); W19.XXXA Unspecified fall, initial encounter; Y92.89 Other specified places as the place of occurrence of the external cause; Y93.89 Activity, other specified; Y99.8 Other external cause status; I10 Essential (primary) hypertension; J45.909 Unspecified asthma, uncomplicated; J44.9 Chronic obstructive pulmonary disease, unspecified; J44.81 Bronchiolitis obliterans and bronchiolitis obliterans syndrome; G47.33 Obstructive sleep apnea (adult) (pediatric); E03.9 Hypothyroidism, unspecified; K21.9 Gastro-esophageal reflux disease without esophagitis; M79.7 Fibromyalgia; M35.9 Systemic involvement of connective tissue, unspecified; F43.10 Post-traumatic stress disorder, unspecified; K58.9 Irritable bowel syndrome, unspecified; Z88.1 Allergy status to other antibiotic agents; Z79.899 Other long term (current) drug therapy; Z79.890 Hormone replacement therapy; Z86.73 Personal history of transient ischemic attack (TIA), and cerebral infarction without residual deficits
CPT/HCPCS: 27822; 36415; 80053; 85027; 96374; 96376; 97161; 97530; C1713; C9290; G0378; J0690

== ENCOUNTER → 2023-11-05 | Outpatient (CLI) | payer OTHER, MEDICARE, BC ==
[~2023-11-05] MED LIST changes: +ACET1TAB55 PO; +ASPI81CH33 PO; +BENA2CRE3 EXT; +BISA10SU20 PR; +CEFA2SOL IV; +DOCU100C16 PO; +MIRA1POW3 PO; +NARC1SPR; +NYST1POW9 TOP; +ONDA-195 PO; +OXYC10TA12 PO; +OXYC1TAB23 PO; +SYNT100T PO; +THIA100T7 PO; +TRAZ-186 PO
== END ==
LOC: M SOG 10:58
PROVIDERS: ATTEND Physician Assistant
DX: S82.841D Displaced bimalleolar fracture of right lower leg, subsequent encounter for closed fracture with routine healing (principal)

== ENCOUNTER 2023-11-16 11:42 | Outpatient (RCR) | payer MEDICARE, BC, OTHER ==
[~2023-11-16 11:42] MED LIST changes: -BISA10SU20 PR; +BISA10SU59 PR; -MIRA1POW3 PO; +MIRA33506 PO
== END 2023-12-10 ==
LOC: M PT 11:42
PROVIDERS: ATTEND Physician Assistant
DX: S82.841D Displaced bimalleolar fracture of right lower leg, subsequent encounter for closed fracture with routine healing (principal)

== ENCOUNTER → 2023-12-10 | Outpatient (CLI) | payer MEDICARE, BC, OTHER | LOC: M SOG 08:24 | PROVIDERS: ATTEND Physician Assistant | DX: S82.841D Displaced bimalleolar fracture of right lower leg, subsequent encounter for closed fracture with routine healing (principal) ==

== ENCOUNTER 2023-12-15 11:21 | Outpatient (RCR) | payer MEDICARE, BC, OTHER | END 2024-01-10 | LOC: M PT 11:21 | PROVIDERS: ATTEND Physician Assistant | DX: S82.841D Displaced bimalleolar fracture of right lower leg, subsequent encounter for closed fracture with routine healing (principal) ==

== ENCOUNTER → 2024-02-25 | Outpatient (CLI) | payer MEDICARE, BC, OTHER ==
[~2024-02-25] MED LIST changes: -POTA10CA60 PO; +POTA10CA70 PO
== END ==
LOC: M SOG 07:52
PROVIDERS: ATTEND Physician Assistant
DX: S82.841D Displaced bimalleolar fracture of right lower leg, subsequent encounter for closed fracture with routine healing (principal)

== ENCOUNTER → 2024-06-08 | Outpatient (CLI) | payer MEDICARE, BC, OTHER | LOC: M LAB 11:20 | PROVIDERS: ATTEND Nurse Practitioner Family | DX: E06.3 Autoimmune thyroiditis (principal) ==